=== PATIENT | female | born 1935 | race Caucasian/White ===

== ENCOUNTER 2019-06-01 09:34 | Day surgery (SDC) | payer MEDICARE, BC ==
[2019-06-01] VITALS (8 sets, daily range): BP systolic 130–184; BP diastolic 38–67; PULSE 43–80; TEMP 97.4–98.2
[~2019-06-01] VITALS: Ht 154.9 cm; Wt 58.4 kg
[2019-06-01] MEDS ORDERED: LEXAPRO 10MG10 MG PO (09:50)
[2019-06-01] MEDS ORDERED: ASPIRIN E.C. 8181 MG PO (09:52)
[2019-06-01] MEDS ORDERED: CALCIUM 600MG+D1 TAB PO (09:52)
[2019-06-01] MEDS ORDERED: ESTRADERM0.05 MG/24 TD (09:52)
[2019-06-01] MEDS ORDERED: LIPITOR 80MG80 MG PO (09:53)
[2019-06-01] MEDS ORDERED: PREVACID 30MG30 M1 PO (09:54)
[2019-06-01] MEDS ORDERED: VITAMIN D31000 I1 PO (09:54)
[2019-06-01] MEDS ORDERED: ATIVAN 0.50.5 MG/TAB PO (09:55)
[2019-06-01] MEDS ORDERED: ZESTRIL40 MG PO (09:56)
[2019-06-01] MEDS ORDERED: HCTZ12.5TAB PO (09:56)
[2019-06-01 10:58] LABS: HEMOGLOBIN 12.3 g/dl (12.5-16.0); MEAN CELL VOLUME 95 fl (80.0-100.0); MEAN CORPUSCULAR HEMOGLOBIN 32 pg (27.0-31.0); MEAN CORPUSCULAR HGB CONC 34 g/dl (33.0-37.0); MEAN PLATELET VOLUME 10.6 fl (7.4-10.4); PLATELET COUNT 186 K/mm3 (130-400); RED BLOOD COUNT 3.82 M/mm3 (4.10-5.30); REDCELL DISTRIBUTION WIDTH-CV 12.6 % (11.5-14.5)
[2019-06-01 10:59] LABS: HEMATOCRIT 36.4 % (37.0-47.0)
[2019-06-01 11:04] LABS: PROTHROMBIN TIME 11.4 SECONDS (9.7-12.8)
[2019-06-01 11:09] LABS: CALCIUM 9.5 mg/dL (8.4-10.2); CREATININE, serum 0.81 (0.52-1.25); POTASSIUM 3.7 mmol/L (3.4-5.0)
--- NOTE | 2019-06-01 11:55 | NUR ---
SEE MERGE FOR MEDICATION ADMINISTRATION TIMES AND INTRA AND POST SEDATION ASSESSMENTS.
--- NOTE | 2019-06-01 13:00 | NUR ---
Pt arrives to medical unit rm [id number] from r&d lab technician via bed, awake and alert, oriented x 4. Dressing over left chest CDI, left arm in sling per orders. Saline lock IV to left forearm without s/s of complications. Pt denies pain at this time. No further needs reported. Call light in reach.
--- NOTE | 2019-06-01 14:25 | NUR ---
Pt reports local numbing agent wearing off and soreness to left chest site increasing. Ice pack in place. PRN medication administered for pain. Call light in reach.
--- NOTE | 2019-06-01 21:36 | NUR ---
PT IN BED ASKED FOR TYLENOL, ADMINISTERED ALONG WTIH ANTIBIOTIC. COMPLAINING OF ACHING PAIN /10. DRESSING CLEAN, DRY INTACT, NO BLEEDING, ICE APPLIED, CALL LIGHT, WATER, TABLE AT BEDSIDE. OVERALL VERY PLEASANT. NO OTHER NEEDS AT THIS TIME. BP OF 171/61, PAGED CARDIOLOGY, WAITING FOR THEIR CALL BACK TO SEE ABOUT BP MEDICATIONS.
--- NOTE | 2019-06-01 22:15 | NUR ---
DR NOGUERA RESPONDED AND GAVE ORDERS TO RESTART HOME BP MEDS STAT (LISINOPRIL 40MG, HYDROCLOROTHIAZIDE 12.5MG). PT GIVEN MEDICATIONS. WILL RECHECK BP AT 2315
--- NOTE | 2019-06-01 23:07 | NUR ---
REASSESSED BP, 170/69, WILL RECHECK AGAIN IN 45 MIN TO GIVE MEDICATION MORE TIME TO TAKE EFFECT. PT AWARE, FRESH ICE PACK PLACED ON CHEST AGAIN, COMPLAINING OF ACHING PAIN STILL.
--- NOTE | 2019-06-02 00:39 | NUR ---
PT BP RECHECKED AND 172/72. WILL WAIT FOR NEXT DOSE OF HYDROCHLOROTHIAZIDE AND LISINOPRIL IN THE MORNING. WILL CONTINUE TO MONITOR
[2019-06-02 04:02] VITALS: BP 152/72; PULSE 64; TEMP 98.8
--- NOTE | 2019-06-02 05:00 | NUR ---
PT IN BED SLEEPING, HAD HARD TIME GETTING TO BED, I THINK SHE WAS ANXIOUS ABOUT DOING THINGS AT HOME AND NOT BEING ABLE TO HAVE FULL ROM ON L ARM. PLEASANT THROUGH SHIFT, AOX4, OVERALL NO COMPLICATIONS, BEEN WEARING ICE OFF AND ON. HYPERTENSION EVIDENT BUT BP MEDS RESTARTED FROM HOME AND BP WENT DOWN TO SYSTOLIC OF 155. WATER, TABLE, CALL LIGHT AT BEDSIDE. ACHING PAIN OF 4/10 IN JOSE R. NO OTHER NEEDS AT THIS TIME.
[2019-06-02 05:35] LABS: BASO % 0.3 % (0.0-2.0); EOS # 0.1 (0.0-0.7); EOS % 1.9 % (0-4.0); GRAN # 4.1 (1.4-6.5); GRAN % 70.1 % (42.2-75.2); HEMOGLOBIN 12.1 g/dl (12.5-16.0); LYMPH % 16.5 % (20.0-51.0); MEAN CELL VOLUME 97 fl (80.0-100.0); MEAN CORPUSCULAR HEMOGLOBIN 33 pg (27.0-31.0); MEAN CORPUSCULAR HGB CONC 34 g/dl (33.0-37.0); MEAN PLATELET VOLUME 10.5 fl (7.4-10.4); MONO # 0.6 (0.1-0.6); MONO % 10.9 % (1.7-9.3); PLATELET COUNT 160 K/mm3 (130-400); REDCELL DISTRIBUTION WIDTH-CV 12.4 % (11.5-14.5)
[2019-06-02 05:46] LABS: CALCIUM 9.1 mg/dL (8.4-10.2); CREATININE, serum 0.83 (0.52-1.25); MAGNESIUM 1.9 mg/dL (1.6-2.3); POTASSIUM 3.5 mmol/L (3.4-5.0)
[2019-06-02 07:26] VITALS: BP 138/59; PULSE 67; TEMP 97.7
--- NOTE | 2019-06-02 07:49 | NUR ---
Pt assessment complete. Pt is sitting up on the side of the bed eating at this time. She is A/O x4. Her breathing is even and unlabored on RA. Pt denies SOB. Currently denies pain, but reports "soreness" to pacemaker site. Ice given to put on site. Site CDI. LUE in sling. POC discussed with patient who verbalizes understanding. Will continue to monitor.
[2019-06-02] MEDS ORDERED: CEPHALEXIN500 M1 PO (10:15)
--- NOTE | 2019-06-02 10:19 | NUR ---
Initial visit; Patient thanked Medical Physics Teacher for visit and offering encouragement and God's blessings.
--- NOTE | 2019-06-02 12:41 | NUR ---
Discharge paperwork and instructions reviewed with patient all questions answered at this time. IV to LFA dc'd catheter tip in place. Pt wheeled out of facility at this time.
== END 2019-06-02 12:42 | disposition home or self-care (01) ==
LOC: COL.CAR 09:34 → PEDS 13:02 → COL.CAR 06-02 12:42
PROVIDERS: Internal Medicine Cardiovascular Disease
DX: I44.2 Atrioventricular block, complete (principal); I25.10 Atherosclerotic heart disease of native coronary artery without angina pectoris; E78.5 Hyperlipidemia, unspecified; I10 Essential (primary) hypertension; K21.9 Gastro-esophageal reflux disease without esophagitis
CPT/HCPCS: OP; J0690; J2250; J3010; Q9967